=== PATIENT | male | born 1990 | race Caucasian/White ===

== ENCOUNTER 2017-01-09 13:33 | Emergency (ER) | payer BC ==
[2017-01-09 13:37] VITALS: BP 123/64
--- NOTE | 2017-01-09 13:43 | UC ---
Throat Pain/Nasal Marik HPI - HPI Summary HPI Summary: awoke with sore throat this morning - History of Current Complaint Chief Complaint: UCRespiratory Stated Complaint: SORE THROAT Time Seen by Provider: 01/09/17 13:35 Hx Obtained From: Patient Onset/Duration: Sudden Onset, Lasting Days - 1, Still Present Severity: Moderate Cough: None Associated Signs & Symptoms: Positive: Fever - Allergies/Home Medications Allergies/Adverse Reactions: Allergies Allergy/AdvReac Type Severity Reaction Status Date / Time No Known Allergies Allergy Verified 01/09/17 13:37 PMH/Surg Hx/FS Hx/Imm Hx Previously Healthy: Yes - Surgical History Surgical History: None - Family History Known Family History: Positive: None Family History: no cardiovascular issues in family lineage - Social History Occupation: Employed Full-time Alcohol Use: Occasionally Substance Use Type: None Smoking Status (MU): Former Smoker Review of Systems Constitutional: Negative Skin: Negative Eyes: Negative ENT: Sore Throat Respiratory: Negative Cardiovascular: Negative Gastrointestinal: Negative Genitourinary: Negative Motor: Negative Neurovascular: Negative Musculoskeletal: Negative Neurological: Negative Psychological: Negative All Other Systems Reviewed And Are Negative: Yes Physical Exam Triage Information Reviewed: Yes Appearance: Well-Appearing, No Pain Distress, Well-Nourished Vital Signs: Initial Vital Signs Temp 99.3 F 01/09/17 13:35 Pulse 64 01/09/17 13:35 Resp 18 01/09/17 13:35 BP 123/64 01/09/17 13:35 Pulse Ox 99 01/09/17 13:35 Vital Signs Reviewed: Yes Eye Exam: Normal Eyes: Positive: Conjunctiva Clear ENT Exam: Normal ENT: Positive: Normal ENT inspection, Hearing grossly normal, Pharynx normal, Tonsillar swelling, Tonsillar exudate. Negative: Nasal congestion, Nasal drainage, Trismus, Muffled/hoarse voice Dental Exam: Normal Neck exam: Normal Neck: Positive: Supple, Nontender, No Lymphadenopathy Respiratory Exam: Normal Respiratory: Positive: Chest non-tender, No respiratory distress, No accessory muscle use Cardiovascular Exam: Normal Cardiovascular: Positive: RRR, Brisk Capillary Refill Musculoskeletal Exam: Normal Musculoskeletal: Positive: Strength Intact, ROM Intact, No Edema Neurological Exam: Normal Neurological: Positive: Alert, Muscle Tone Normal Psychological Exam: Normal Skin Exam: Normal Diagnostics - Laboratory Diagnostic Studies Completed/Ordered: RST (+) Throat Pain/Nasal Course/Dx - Course Course Of Treatment: Amoxicillin, increase fluids, tylenol, ibprofen follow with pcp - Differential Dx/Diagnosis Differential Diagnosis/HQI/PQRI: Laryngitis, Pharyngitis, Sinusitis, URI Provider Diagnoses: Strep Pharyngitis Discharge - Discharge Plan Condition: Stable Disposition: HOME Prescriptions: Amoxicillin PO (*) [Amoxicillin 500 MG CAP*] 500 mg PO Q12H #20 cap Patient Education Materials: Ibuprofen (By mouth), Amoxicillin (By mouth), Strep Throat (ED) Forms: *Work Release Referrals: No Primary Care Phys,NOPCP [Primary Care Provider] - Additional Instructions: Follow with your primary care provider or return as needed
== END 2017-01-09 14:05 | disposition home or self-care (01) ==
LOC: UCEAST 13:33
DX: J02.0 Streptococcal pharyngitis (principal); Z87.891 Personal history of nicotine dependence
CPT/HCPCS: 87651; 99211; G0463

== ENCOUNTER 2017-03-02 15:44 | Emergency (ER) | payer BC ==
[2017-03-02 16:54] VITALS: BP 101/65
--- NOTE | 2017-03-02 17:23 | UC ---
Eye Complaint HPI - HPI Summary HPI Summary: 26 Y/O MALE WITH NO pmh, NO MEDS, PRESENTS WITH GREEN DRAINAGE FROM r EYE SINCE THIS am. 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 NO pain yesterday. THis AM, eye with crusty, yellow drainage. no vision changes. no toehr complaints, no fever, chills. + redness, + ithcy sensation no L eye symptoms. - History of Current Complaint Chief Complaint: UCEye Stated Complaint: RIGHT EYE COMPLAINT Time Seen by Provider: 03/02/17 17:22 Hx Obtained From: Patient Onset/Duration: Sudden Onset, Lasting Hours Timing: Constant Severity Currently: None - Allergies/Home Medications Allergies/Adverse Reactions: Allergies Allergy/AdvReac Type Severity Reaction Status Date / Time No Known Allergies Allergy Verified 01/09/17 13:37 PMH/Surg Hx/FS Hx/Imm Hx Previously Healthy: No - healthy - Surgical History Surgical History: None - Family History Known Family History: Positive: None Family History: no cardiovascular issues in family lineage - Social History Alcohol Use: Occasionally Substance Use Type: None Smoking Status (MU): Former Smoker Type: Cigarettes Length of Time of Smoking/Using Tobacco: 2 yrs Have You Smoked in the Last Year: No When Did the Patient Quit Smoking/Using Tobacco: 2014 Review of Systems Eyes: Drainage, Eye Redness All Other Systems Reviewed And Are Negative: Yes Physical Exam Triage Information Reviewed: Yes Appearance: Well-Appearing, No Pain Distress, Well-Nourished Vital Signs: Initial Vital Signs Temp 98.3 F 03/02/17 16:45 Pulse 69 03/02/17 16:45 Resp 14 03/02/17 16:45 BP 101/65 03/02/17 16:45 Pulse Ox 100 03/02/17 16:45 Eyes: Positive: Conjunctiva Inflamed, Discharge - R eye yellow, copious amount, Other: - L eye negative for conjunctivitis, drainage. no periorbital tenderness b/l Eye Complaint Course/Dx - Course Course Of Treatment: R eye conjunctivitis, educated on highly contagious, hand washing. abx drops given, follow up if no imrpovement of symptoms within 48 hours to ophthmology. - Differential Dx/Diagnosis Differential Diagnosis/HQI/PQRI: Conjunctivitis, Corneal Abrasion Provider Diagnoses: R eye conjunctivitis Discharge - Discharge Plan Condition: Good Disposition: HOME Prescriptions: Ciprofloxacin 0.3% OPTH.CARMEN* [Cipro 0.3% Opth*] 2 drop RIGHT EYE Q4H #1 btl Patient Education Materials: Conjunctivitis (ED) Referrals: No Primary Care Phys,NOPCP [Primary Care Provider] - Additional Instructions: - eye drops four times a day until symptoms have cleared for >24 hours - Drug store eye drops for comfort - Return to ER with vision changes, fever, increased pain
== END 2017-03-02 17:36 | disposition home or self-care (01) ==
LOC: UCCORT 15:44
DX: H10.31 Unspecified acute conjunctivitis, right eye (principal); Z87.891 Personal history of nicotine dependence
CPT/HCPCS: 99212; G0463

== ENCOUNTER 2018-03-04 09:10 | Emergency (ER) | payer BC ==
[2018-03-04 09:24] VITALS: BP 142/86
--- NOTE | 2018-03-04 09:24 | UC ---
Throat Pain/Nasal Amrik HPI - HPI Summary HPI Summary: This patient is a 27 year old M presenting to [facility] [place] with a chief complaint of a sore throat that began this morning, although he has flux like sx for 3 days. The patient rates the pain 6/10 in severity. Patient reports cough, myalgia, fever, chills, and SOB. Patient denies rhinorrhea and sneezing. Pt has two children at home, one a is new born, and neither of them are sick. Pt took Nyquil last night at 2200. NKDA. - History of Current Complaint Stated Complaint: SORE THROAT Time Seen by Provider: 03/04/18 09:11 Hx Obtained From: Patient Onset/Duration: Lasting Days, Still Present, Worse Since - last night Severity: Moderate Pain Intensity: 6 Pain Scale Used: 0-10 Numeric Cough: Nonproductive Associated Signs & Symptoms: Positive: Fever, Other - cough, myalgia, fever, chills, and SOB. - Allergies/Home Medications Allergies/Adverse Reactions: Allergies Allergy/AdvReac Type Severity Reaction Status Date / Time No Known Allergies Allergy Verified 03/04/18 09:16 Home Medications: Home Medications Dextromethorphan Hb/Doxylamine [Night Time Cough Liquid] 30 ml PO BID PRN [History Confirmed 03/04/18] PMH/Surg Hx/FS Hx/Imm Hx Previously Healthy: Yes Other History Of: Negative For: Hepatitis B, Hepatitis C, Anticoagulant Therapy - Surgical History Surgical History: None - Family History Known Family History: Positive: None Negative: Cardiac Disease, Hypertension Family History: no cardiovascular issues in family lineage - Social History Occupation: Employed Full-time Lives: With Family Alcohol Use: Occasionally Substance Use Type: None Smoking Status (MU): Former Smoker Type: Cigarettes Length of Time of Smoking/Using Tobacco: 2 yrs Have You Smoked in the Last Year: No When Did the Patient Quit Smoking/Using Tobacco: 2014 Review of Systems Constitutional: Fever, Chills ENT: Sore Throat Respiratory: Shortness Of Breath Musculoskeletal: Myalgia All Other Systems Reviewed And Are Negative: Yes Physical Exam - Summary Physical Exam Summary: Appearance: Well appearing, no pain distress Skin: warm, dry, reflects adequate perfusion Head/face: normal Eyes: EOMI, EH ENT: nasal mucosa with inflammation. Enlarged tonsils on the right side with exudate. Neck: supple, non-tender Respiratory: CTA, breath sounds present Cardiovascular: RRR, pulses symmetrical Abdomen: non-tender, soft Bowel Sounds: present Musculoskeletal: normal, strength/ROM intact Neuro: normal, sensory motor intact, A&Ox3 Triage Information Reviewed: Yes Vital Signs Reviewed: Yes Throat Pain/Nasal Course/Dx - Course Course Of Treatment: Rapid strep is negative. URI symptoms preceded. Treat with steroids. Follow-up primary care physician. Assessment/Plan: BP noted and pt was advised to f/u with PCP. - Differential Dx/Diagnosis Provider Diagnoses: Elevate blood pressure without history of HTN and pharyngitis Discharge - Sign-Out/Discharge Documenting (check all that apply): Patient Departure All imaging exams completed and their final reports reviewed: No Studies - Discharge Plan Condition: Improved Disposition: HOME Prescriptions: Dexamethasone TAB* [Decadron TAB*] 8 mg PO DAILY #8 tab Patient Education Materials: Pharyngitis (ED) Referrals: Maryanne Kim MD [Primary Care Provider] - Additional Instructions: Your blood pressure was elevated during todays visit; please follow up with your primary care provider within a week for further evaluation. Drink plenty of fluids. Tylenol, ibuprofen as needed for discomfort or fever. Return if unable to keep down liquids, worse, new symptoms or other concerns as discussed. Follow up with your family doctor this week, have them repeat check your blood pressure. - Billing Disposition and Condition Condition: IMPROVED Disposition: Home - Attestation Statements Document Initiated by Nik: Yes Documenting Scribe: Pamela Moreno Provider For Whom Nik is Documenting (Include Credential): Danny Smith MD Scribe Attestation: Pamela Abbasi , scribed for Danny Smith MD on 03/04/18 at 1018. Scribe Documentation Reviewed: Yes Provider Attestation: The documentation as recorded by the Pamela lofton accurately reflects the service I personally performed and the decisions made by , Danny Smith MD
== END 2018-03-04 09:40 | disposition home or self-care (01) ==
LOC: UCEAST 09:10
DX: J02.9 Acute pharyngitis, unspecified (principal); R03.0 Elevated blood-pressure reading, without diagnosis of hypertension; Z87.891 Personal history of nicotine dependence
CPT/HCPCS: 87651; 99212; G0463